=== PATIENT | female | born 1990 | race Caucasian/White ===

== ENCOUNTER 2021-11-21 21:38 | Emergency (ER) | payer SELFPAY ==
[~2021-11-21] VITALS: Ht 175.3 cm; Wt 111.1 kg
[2021-11-21] MEDS ORDERED: KETOROLAC TROMETHAMINE 30 MG/ML VIAL IM STA (21:54)
[2021-11-21] MEDS ORDERED: HYDROCODONE/APAP 5MG-325MG TAB PO ONE (22:00)
[2021-11-21 22:12] LABS: CLARITY,URINE CLOUDY (CLEAR); COLOR,URINE BROWN (YELLOW); KETONES,URINE TRACE (NEGATIVE); LEUKOCYTE ESTERASE ,URINE LARGE (NEGATIVE); NITRITE,URINE POSITIVE (NEGATIVE); PROTEIN,URINE DIPSTICK >=300 (NEGATIVE); URINE UROBILINOGEN 1 mg/dL (0.2 - 1)
[2021-11-21 22:22] LABS: RBC,URINE >50 /HPF (0-5)
[2021-11-21 22:23] LABS: AMORPHOUS SEDIMENT,URINE MODERATE (FEW); BACTERIA,URINE FEW /HPF; EPITHELIAL CELLS,URINE RARE /LPF
[2021-11-21] MEDS ORDERED: CIPRO500 MG PO (23:12)
[2021-11-21] MEDS ORDERED: BACTRIM DS TAB1 EACH PO (23:23)
== END 2021-11-21 23:38 | disposition home or self-care (01) ==
LOC: ER 21:45
DX: R30.0 Dysuria (principal); N39.0 Urinary tract infection, site not specified; F41.9 Anxiety disorder, unspecified; Z87.442 Personal history of urinary calculi
CPT/HCPCS: 74176; 81001; 81025; 99283

== ENCOUNTER 2021-12-06 17:50 | Emergency (ER) | payer SELFPAY ==
[~2021-12-06] VITALS: Ht 175.3 cm; Wt 111.1 kg
[~2021-12-06 17:50] MED LIST: BACTRIM DS TAB1 EACH PO; CIPRO500 MG PO
[2021-12-06] MEDS ORDERED: IBUPROFEN600 MG PO (18:51)
[2021-12-06] MEDS ORDERED: CIPRO250 MG PO (18:51)
[2021-12-06 18:58] LABS: CLARITY,URINE CLEAR (CLEAR); COLOR,URINE YELLOW (YELLOW)
[2021-12-06 18:59] LABS: KETONES,URINE NEGATIVE (NEGATIVE); LEUKOCYTE ESTERASE ,URINE 1+ (NEGATIVE); NITRITE,URINE NEGATIVE (NEGATIVE); PROTEIN,URINE DIPSTICK NEGATIVE (NEGATIVE); URINE UROBILINOGEN 0.2 mg/dL (0.2 - 1)
[2021-12-06 19:06] LABS: WBC,URINE (MAN) 21-50 /HPF (0-5)
[2021-12-06 19:07] LABS: BACTERIA,URINE MANY /HPF; EPITHELIAL CELLS,URINE MODERATE /LPF; HYALINE CASTS 0-1 (0-1)
[2021-12-06 19:08] LABS: MUCUS,URINE FEW (RARE)
== END 2021-12-06 20:05 | disposition home or self-care (01) ==
LOC: ER 18:00
DX: R30.0 Dysuria (principal); N30.90 Cystitis, unspecified without hematuria; R50.9 Fever, unspecified; F41.9 Anxiety disorder, unspecified; Z87.442 Personal history of urinary calculi
CPT/HCPCS: 81001; 81025; 87086; 99283

== ENCOUNTER 2021-12-21 16:22 | Emergency (ER) | payer SELFPAY ==
[~2021-12-21] VITALS: Ht 175.3 cm; Wt 111.1 kg
[~2021-12-21 16:22] MED LIST changes: +CIPRO250 MG PO; +IBUPROFEN600 MG PO
[2021-12-21] MEDS ORDERED: CEFDINIR 300 MG CAP PO SCH (17:00)
[2021-12-21 17:52] LABS: CLARITY,URINE CLEAR (CLEAR); COLOR,URINE YELLOW (YELLOW)
[2021-12-21 17:53] LABS: KETONES,URINE NEGATIVE (NEGATIVE); LEUKOCYTE ESTERASE ,URINE NEGATIVE (NEGATIVE); NITRITE,URINE NEGATIVE (NEGATIVE); PROTEIN,URINE DIPSTICK NEGATIVE (NEGATIVE); URINE UROBILINOGEN 0.2 mg/dL (0.2 - 1)
[2021-12-21 18:10] LABS: BACTERIA,URINE RARE /HPF; EPITHELIAL CELLS,URINE FEW /LPF; RBC,URINE 0-5 /HPF (0-5); WBC,URINE (MAN) 0-5 /HPF (0-5)
== END 2021-12-21 18:38 | disposition home or self-care (01) ==
LOC: ER 16:41
DX: R30.0 Dysuria (principal); F41.9 Anxiety disorder, unspecified; Z87.442 Personal history of urinary calculi
CPT/HCPCS: 81001; 81025; 99283